=== PATIENT | female | born 1970 ===

== ENCOUNTER → 2025-09-24 13:54 | Outpatient (BNVA) | payer BC, SELFPAY | PROVIDERS: Visit Provider Podiatrist Foot & Ankle Surgery | DX: Q82.8 Other specified congenital malformations of skin (principal); L60.3 Nail dystrophy | CPT/HCPCS: 73630 ==

== ENCOUNTER 2025-10-10 08:52 | Emergency (ER) | payer BC, SELFPAY ==
--- OUTSIDE RECORDS SUMMARY | 2025-09-20 03:00 | XMS_ITS ---
Author Organization [facility] Address [address] [place] [address] Care Team Providers Care Manager Agency Name Role Phone Jaxson Ramachandran Primary Care Provider [phone] Ton Sandhu [phone] Encounters Encounter Location Date Provider Diagnosis [facility] [address] [place] [address] [address] CONK[address] [place] [phone] 09/20/2025 Ton Sandhu Plan Of Treatment Next Appt Details Provider Name:Ton Sandhu, 12/30/2025 02:20:00 PM, [address] [place] [address] DR CONKLIN [address] [place] [address], [phone], Progress Notes * BENTLEYMADELINEOB: 1 (55 yo F)Acc No.[id number]:09/20/2025 Patient: DANIELLE ElmoreE Provider: Bora Sandhu MD :1970 A ge:54 Y S ex:Female Date:09/20/2025 Address:[address] , [facility], [id number] Pcp:Jaxson Ramachanrdan Billing Information: * Procedure Codes: * Electronic signature of Fatou Sandhu MD on 10/10/2025 at 09:07 AM MANAGER OF COMPENSATION Sign off status: Pending * Provider: Bora Sandhu MD Date: Generated for Haim dominguez/John/eTransmitting on: 12/10/2024 09:07 AM MANAGER OF COMPENSATION
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
--- OUTSIDE RECORDS SUMMARY | 2025-10-03 09:21 | XMS_ITS ---
Author Organization [facility] Address [address] [place] [address] Care Team Providers Care Macroeconomics Professor Name Role Phone Jaxson Ramachandran Primary Care Provider [phone] REASON FOR VISIT historical data Immunizations Vaccine Route Administration Date Status Comme nts Flucelvax Trivalent, Syringe 0.5 mL, PF Unknown 025 Refused Encounters Encounter Location Date Provider Diagnosis [facility] [address] [facility] [address] [place] [address] 10/03/2025 Jaxson Ramachandran Encounter for immunization Z23 and Immunization not carried out because of patient refusal Z28.21 Assessments Encounter Date Diagnosis (ICD Code) Assessment Notes Treatment Notes Treatment Clinical Notes Section Notes 10/03/2025 Encounter for immunization (ICD-10 - Z23) 10/03/2025 Immunization not carried out because of patient refusal (ICD-10 - Z28.21) Plan Of Treatment Next Appt Details Provider Name:Ton Sandhu, 12/30/2025 02:20:00 PM, [address] [place] [address] [address], [place], [phone], Progress Notes * MADELINE BENTLEYOB: 1 (54 yo F)Acc No.[id number]:10/03/2025 Patient: FARHAN BURGER :1970 A ge:54 Y S ex:Female Address:[address] , [place], [address] Subjective: * Chief Complaints: * H istorical data Assessment: * Assessment: 1. E ncounter for immunization - Z23 2 . I mmunization not carried out because of patient refusal - Z28.21 Plan: * Immunizations: Flucelvax Trivalent, Syringe 0.5 mL, PF (Not administered - Refused: Patient decision) (Encounter for immunization, Immunization not carried out because of patient refusal) * Procedure Codes: G 8483 FLU IMM NO ORD/ADMIN DOC [facility] Billing Information: * Procedure Codes: G8483 FLU IMM NO ORD/ADMIN DOC [facility]ERRA. * true * Date: Generated for Haim dominguez/John/eTransmitting on: 12/10/2024 09:08 AM ANIMAL GENETICIST
[2025-10-10 08:59] VITALS: BP 152/82; PULSE 86; RESP 14; TEMP 36.3; O2SAT 98; BMI 21.4
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
[2025-10-10 09:32] VITALS: BP 133/81; PULSE 89; O2SAT 99
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
== END 2025-10-10 09:35 | disposition home or self-care (01) ==
PROVIDERS: Emergency Provider Emergency Medicine
DX: M79.602 Pain in left arm (principal); R20.2 Paresthesia of skin; Z72.0 Tobacco use
CPT/HCPCS: 99281

== ENCOUNTER → 2025-10-17 10:28 | Outpatient (BNVA) | payer BC, SELFPAY | PROVIDERS: Visit Provider Orthopaedic Surgery | DX: M25.522 Pain in left elbow (principal); M77.12 Lateral epicondylitis, left elbow; S59.902A Unspecified injury of left elbow, initial encounter; X58.XXXA Exposure to other specified factors, initial encounter | CPT/HCPCS: 73080 ==

== ENCOUNTER 2025-10-18 08:42 | Outpatient (CLI) | payer BC, SELFPAY | END 2025-10-18 08:43 | disposition home or self-care (01) | LOC: SPT 08:46 | PROVIDERS: Visit Provider Orthopaedic Surgery | DX: Z46.89 Encounter for fitting and adjustment of other specified devices (principal); M25.522 Pain in left elbow | CPT/HCPCS: L3908 ==